=== PATIENT | female | born 1950 | race Caucasian/White ===

== ENCOUNTER 2019-07-23 14:33 | Outpatient (CLI) | payer MEDICARE, BC, SELFPAY ==
--- NOTE | 2019-07-23 14:55 | ECHO_ITS ---
Patient Info Name: Gege Massey Age: 68 years : 1950 Gender: Female Ht: 68 in Wt: 170 lbs BSA: 1.94 m2 HR: 71 bpm BP: 157 / 83 mmHg Heart Rhythm: Sinus Rhythm Technical Quality: Good Exam Date: 07/23/2019 3:02 PM Exam Location: [facility] Patient Status: Outpatient Admit Date: 07/23/2019 Staff Ordering Physician: Palma De Leon MD Campus Safety Officer: Barbara Barragan RDCS Attending Provider: Palma De Leon MD Referring Physician: Haley REYNOSO; Exam Type: CA echo doppler color flow Study Info Indications - nonrheumatic aortic valve insufficiency Complete two-dimensional, color flow and Doppler transthoracic echocardiogram is performed. Summary 1. Left ventricular chamber dimension is normal. 2. Left ventricular systolic function is normal, estimated at 55-60%. 3. There is mildly increased left ventricular wall thickness. 4. The left ventricular diastolic function is grade I diastolic dysfunction. 5. Left atrial chamber dimension is mildly enlarged. 6. Right atrial chamber dimension is mildly enlarged. 7. There is moderate aortic valve regurgitation. 8. There is mild mitral valve regurgitation. 9. There is mild tricuspid valve regurgitation. 10. There is mild pulmonic regurgitation. Left Ventricle Left ventricular chamber dimension is normal. Left ventricular systolic function is normal, estimated at 55-60%. There is mildly increased left ventricular wall thickness. The left ventricular diastolic function is grade I diastolic dysfunction. Right Ventricle Right ventricular chamber dimension is normal. Right ventricular systolic function is normal. Left Atria Left atrial chamber dimension is mildly enlarged. Right Atria Right atrial chamber dimension is mildly enlarged. Atrial Septum Intact interatrial septum visualized by color flow imaging. Aortic Valve The aortic valve is trileaflet. There is mild aortic valve sclerosis. There is no aortic valve stenosis. There is moderate aortic valve regurgitation. Pulmonic Valve The pulmonic valve is normal. There is no pulmonic valve stenosis. There is mild pulmonic regurgitation. Mitral Valve The mitral valve has thickened leaflets. There is no mitral valve stenosis. There is mild mitral valve regurgitation. Tricuspid Valve The tricuspid valve leaflets are normal. There is no significant tricuspid valve stenosis. There is mild tricuspid valve regurgitation. No pulmonary hypertension, estimated pulmonary arterial systolic pressure is 25 mmHg. Pericardium/Pleural The pericardium appears normal. There is no pericardial effusion. Inferior Vena Cava Normal inferior vena cava with >50% collapse upon inspiration consistent with normal right atrial pressure, 10 mmHg. Aorta The aortic root size at the sinus of Valsalva is normal. Left Ventricular Outflow Tract Name Value Normal LVOT 2D LVOT Diameter 2.0 cm LVOT Doppler LVOT Peak Gradient 5 mmHg LVOT Mean Gradient 3 mmHg LVOT VTI 27 cm
== END 2019-07-23 14:34 | disposition home or self-care (01) ==
PROVIDERS: PCP Family Medicine; Visit Provider Family Medicine
DX: I08.3 Combined rheumatic disorders of mitral, aortic and tricuspid valves (principal); I51.7 Cardiomegaly
CPT/HCPCS: 93306

== ENCOUNTER → 2019-07-25 09:16 | Outpatient (CLI) | payer MEDICARE, BC, SELFPAY ==
--- NOTE | ~2019-07-25 | MMUS_ITS ---
EXAMINATION: MM diagnostic aleksandra LT w zena, US breast LT limited HISTORY: Follow-up left breast masses TECHNIQUE: Additional 3-D tomosynthesis images of the left breast were performed and synthetic 2-D im ages were generated. CAD analysis was submitted and interpreted. High resolution left breast ultrasou nd was performed. COMPARISON: Comparison to multiple prior studies sequentially, with oldest reviewed study dated 10/2017. FINDINGS: MAMMOGRAPHIC FINDINGS: Breast composed of scattered areas of fibroglandular density. There are 2 small circumscribed radiolu cent nodules in the lower inner quadrant of the left breast, middle third, largest measuring 5 mm. No suspicious calcifications or architectural distortion. ULTRASOUND: Left breast ultrasound: At 7:00, 5 cm from the nipple there are 2 adjacent cysts, largest measuring 4 mm corresponding to the mammographic findings. At 7:00, 1 cm from the nipple there is a 3 mm cyst. No sonographic evidence f or malignancy. IMPRESSION: 1. No evidence for malignancy in the left breast. Benign cysts are identified by ultrasound correspon ding to the mammographic findings. 2. Routine yearly screening mammogram and regular clinical breast examination are recommended. BI-RADS Category 2: Benign finding(s). Reviewed, dictated and finalized at location A. 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 No evidence for malignancy in the left breast. Benign cysts are identified b y ultrasound corresponding to the mammographic findings. 2. Routine yearly screening mammogram and regular clinical breast examination a re recommended. BI-RADS Category 2: Benign finding(s).
== END ==
PROVIDERS: PCP Family Medicine; Visit Provider Physician Assistant Medical
DX: R92.8 Other abnormal and inconclusive findings on diagnostic imaging of breast (principal)
CPT/HCPCS: 76642; 77061; 77065; G0279

== ENCOUNTER → 2020-12-28 09:17 | Outpatient (CLI) | payer MEDICARE, BC, SELFPAY ==
[2020-12-28 18:17] LABS: SARS-CoV-2 RNA PCR Negative
== END ==
PROVIDERS: PCP Family Medicine; Visit Provider Family Medicine
DX: R05 Cough (principal); J02.9 Acute pharyngitis, unspecified; Z20.822 Contact with and (suspected) exposure to COVID-19
CPT/HCPCS: C9803; U0003; U0005

== ENCOUNTER 2021-01-28 12:34 | Outpatient (CLI) | payer MEDICARE, BC, SELFPAY ==
--- NOTE | 2021-01-28 | ECHO_ITS ---
Patient Info Name: Gege Massey Age: 70 years : 1950 Gender: Female Ht: 68 in Wt: 165 lbs BSA: 1.90 m2 HR: 71 bpm BP: 130 / 72 mmHg Technical Quality: Fair Exam Date: 01/28/2021 1:04 PM Exam Location: [facility] Patient Status: Outpatient Admit Date: 01/28/2021 Staff Ordering Physician: Palma De Leon MD Harness Racing Handicapper: Denise Ugarte RDCS Attending Provider: Palma De Leon MD Referring Physician: Haley REYNOSO; Exam Type: CA echo doppler color flow Study Info Indications I35.1 - Nonrheumatic aortic (valve) insufficiency Complete two-dimensional, color flow and Doppler transthoracic echocardiogram is performed. Summary 1. Complete two-dimensional, color flow and Doppler transthoracic echocardiogram is performed. 2. Left ventricular chamber dimension is normal. 3. Left ventricular systolic function is normal, estimated at 65-70%. 4. The left ventricular diastolic function is grade I diastolic dysfunction. 5. E/e' 12 is mildly elevated. 6. Global longitudinal strain is normal at -17.0%. 7. Left atrial chamber dimension is mildly enlarged. 8. There is mild aortic valve sclerosis. 9. There is mild aortic valve regurgitation. 10. No pulmonary hypertension, estimated pulmonary arterial systolic pressure is 26 mmHg. Left Ventricle E/e' 12 is mildly elevated. Global longitudinal strain is normal at -17.0%. Left ventricular chamber dimension is normal. Left ventricular systolic function is normal, estimated at 65-70%. The left ventricular diastolic function is grade I diastolic dysfunction. Right Ventricle Right ventricular chamber dimension is normal. Right ventricular systolic function is normal. Left Atria Left atrial chamber dimension is mildly enlarged. Right Atria Right atrial chamber dimension is normal. Aortic Valve The aortic valve is trileaflet. There is mild aortic valve sclerosis. There is no aortic valve stenosis. There is mild aortic valve regurgitation. Pulmonic Valve There is no pulmonic regurgitation. Mitral Valve There is no mitral valve stenosis. There is no mitral valve regurgitation. Tricuspid Valve There is no tricuspid valve regurgitation. No pulmonary hypertension, estimated pulmonary arterial systolic pressure is 26 mmHg. Pericardium/Pleural There is no pericardial effusion. Inferior Vena Cava Normal inferior vena cava with >50% collapse upon inspiration consistent with normal right atrial pressure, 5 mmHg. Aorta The aortic root size at the sinus of Valsalva is normal. Left Ventricular Outflow Tract Name Value Normal LVOT 2D LVOT Diameter 2.0 cm LVOT Doppler LVOT Peak Gradient 6 mmHg LVOT Mean Gradient 3 mmHg LVOT VTI 29 cm LVOT VTI/AV VTI Ratio 0.9 LVOT Stroke Volume 88 ml LVOT CO 5.8 l/min LVOT CI 3.1 l/min/m2 Pulmonic Valve
--- NOTE | 2021-01-28 12:50 | ECHO_ITS ---
Patient Info Name: Gege Massey Age: 70 years : 1950 Gender: Female Ht: 68 in Wt: 165 lbs BSA: 1.90 m2 HR: 71 bpm BP: 130 / 72 mmHg Technical Quality: Fair Exam Date: 01/28/2021 1:04 PM Exam Location: [facility] Patient Status: Outpatient Admit Date: 07/23/2019 Staff Ordering Physician: Palma De Leon MD Rag Collector: Denise Ugarte RDCS Attending Provider: Palma De Leon MD Referring Physician: Haley REYNOSO; Exam Type: CA echo doppler color flow Study Info Indications I35.1 - Nonrheumatic aortic (valve) insufficiency Complete two-dimensional, color flow and Doppler transthoracic echocardiogram is performed. Summary 1. Complete two-dimensional, color flow and Doppler transthoracic echocardiogram is performed. 2. Left ventricular chamber dimension is normal. 3. Left ventricular systolic function is normal, estimated at 65-70%. 4. The left ventricular diastolic function is grade I diastolic dysfunction. 5. E/e' 12 is mildly elevated. 6. Global longitudinal strain is normal at -17.0%. 7. Left atrial chamber dimension is mildly enlarged. 8. There is mild aortic valve sclerosis. 9. There is mild aortic valve regurgitation. 10. No pulmonary hypertension, estimated pulmonary arterial systolic pressure is 26 mmHg. Left Ventricle E/e' 12 is mildly elevated. Global longitudinal strain is normal at -17.0%. Left ventricular chamber dimension is normal. Left ventricular systolic function is normal, estimated at 65-70%. The left ventricular diastolic function is grade I diastolic dysfunction. Right Ventricle Right ventricular chamber dimension is normal. Right ventricular systolic function is normal. Left Atria Left atrial chamber dimension is mildly enlarged. Right Atria Right atrial chamber dimension is normal. Aortic Valve The aortic valve is trileaflet. There is mild aortic valve sclerosis. There is no aortic valve stenosis. There is mild aortic valve regurgitation. Pulmonic Valve There is no pulmonic regurgitation. Mitral Valve There is no mitral valve stenosis. There is no mitral valve regurgitation. Tricuspid Valve There is no tricuspid valve regurgitation. No pulmonary hypertension, estimated pulmonary arterial systolic pressure is 26 mmHg. Pericardium/Pleural There is no pericardial effusion. Inferior Vena Cava Normal inferior vena cava with >50% collapse upon inspiration consistent with normal right atrial pressure, 5 mmHg. Aorta The aortic root size at the sinus of Valsalva is normal. Left Ventricular Outflow Tract Name Value Normal LVOT 2D LVOT Diameter 2.0 cm LVOT Doppler LVOT Peak Gradient 6 mmHg LVOT Mean Gradient 3 mmHg LVOT VTI 29 cm LVOT VTI/AV VTI Ratio 0.9 LVOT Stroke Volume 88 ml LVOT CO 5.8 l/min LVOT CI 3.1 l/min/m2 Pulmonic Valve
== END 2021-01-28 12:35 | disposition home or self-care (01) ==
LOC: ANHCARD 12:34
PROVIDERS: PCP Family Medicine; Visit Provider Family Medicine
DX: I35.1 Nonrheumatic aortic (valve) insufficiency (principal); I34.0 Nonrheumatic mitral (valve) insufficiency
CPT/HCPCS: 93306

== ENCOUNTER → 2021-09-29 12:33 | Outpatient (CLI) | payer MEDICARE, BC, SELFPAY ==
--- NOTE | ~2021-09-29 | MM_ITS ---
EXAMINATION: MM screening aleksandra BI w zena HISTORY: Screening mammogram TECHNIQUE: Craniocaudal and mediolateral oblique 3-D tomosynthesis images were obtained and synthetic 2-D images were generated. CAD analysis was submitted and interpreted. COMPARISON: No prior mammogram is available for comparison at this institution. BREAST PARENCHYMAL COMPOSITION: FINDINGS: There is interval diminished size of a circumscribed nodular opacity in the lower inner lef t breast and resolution of the other adjacent opacity since July 25, 2019, consistent with benign process, likely cysts. No suspicious mass , calcification, or architectural distortion to suggest malignancy in either breas t. There has been no suspicious interval change. IMPRESSION: 1. No mammographic evidence of malignancy. 2. Recommend routine screening mammography in one year. BI-RADS Category 2: Benign finding(s). Reviewed, dictated and finalized at location A.
== END ==
PROVIDERS: PCP Family Medicine; Visit Provider Family Medicine
DX: Z12.31 Encounter for screening mammogram for malignant neoplasm of breast (principal)
CPT/HCPCS: 77063; 77067

== ENCOUNTER → 2022-03-04 10:00 | Outpatient (CLI) | payer MEDICARE, BC, SELFPAY ==
--- NOTE | ~2022-03-04 | MR_ITS ---
EXAMINATION: MR ankle LT wo con, MR foot LT wo con DATE: 03/04/2022 11:25 INDICATION: Left foot and ankle pain TECHNIQUE: 1. Magnetic resonance imaging (MRI) of the left ankle was performed without intravenous contrast. Seq uences included sagittal, coronal, and axial proton-density weighted fast spin echo without and with fat saturation. 2. MRI of the left fore/mid foot was performed without intravenous contrast. Sequences included sagi ttal T1-weighted FSE, sagittal fluid sensitive FSE STIR, coronal PD-weighted FS FSE, coronal T1-weigh enriqueta FSE, axial PD-weighted FS FSE, and axial PD-weighted FSE. COMPARISON: None. FINDINGS: Medial ankle ligaments: Deep and superficial deltoid ligaments as well as the spring ligament are normal. Lateral ankle ligaments: The anterior and posterior inferior tibiofibular ligaments are normal. The anterior talofibular, calc aneofibular and posterior talofibular ligaments are normal. Mid/forefoot ligaments: The Lis Franc ligament complex is normal. The collateral ligament complexes at the metatarsophalangea l and interphalangeal joints are normal. Tendons: Achilles tendon is normal. The peroneus longus and brevis tendons are normal. The tibialis anterior a nd extensor hallucis longus and extensor digitorum longus tendons are normal. The tibialis posterior, flexor digitorum longus and flexor hallucis longus tendons are normal. Plantar fascia: Near complete tear of the central component of the plantar aponeurosis with up to 1 cm distal retract ion of the torn portion of the tendon with small fluid collection at the tear defect.. Tendinopathy a nd partial-thickness tear involving approximately one half of the cross-sectional area of the lateral component of the plantar aponeurosis. Tendinopathy without discrete tear of the medial component. Mi ld cystic change at the calcaneal origin of the aponeurosis where there is also a small plantar calca jose luis spur. Bones/other: Bone alignment is normal. Normal bone marrow signal throughout. No fracture or pathologic marrow repl acing process. Typical distribution of minimal to mild polyarticular osteoarthritis in the left foot primarily at the second-fourth tarsal metatarsal, first metatarsophalangeal and a few of the interpha langeal joints. No erosions or pathologic marrow replacing process. Fluid: Physiologic amount fluid in the joint spaces. Small fluid collection is noted at the tear defect of t he plantar aponeurosis. No bursitis, tenosynovitis or other abnormal fluid collections. IMPRESSION: 1. Partial tear at the calcaneal origin of the plantar aponeurosis which is near complete at the cent ral component where there is up to 1 cm distal retraction of the torn portion of the aponeurosis. Reviewed, dictated and finalized at location B. IMPRESSION: 1. Partial tear at the calcaneal origin of the plantar aponeurosis which is scott r complete at the central component where there is up to 1 cm distal retraction of the torn portion of the aponeurosis.
== END ==
PROVIDERS: PCP Family Medicine; Visit Provider Orthopaedic Surgery
DX: M25.572 Pain in left ankle and joints of left foot (principal)
CPT/HCPCS: 73718; 73721

== ENCOUNTER → 2022-10-17 15:36 | Outpatient (CLI) | payer MEDICARE, BC, SELFPAY ==
--- NOTE | ~2022-10-17 | XR_ITS ---
[XR ribs LT 2V w CXR 2V ] INDICATION: Left rib pain TECHNIQUE: Frontal projection of the upper left ribs, frontal projection of the lower left ribs, obli que projection of all the left ribs, frontal inspiratory chest x-ray for interpretation. FINDINGS: There are no displaced rib fractures identified. There are no soft tissue abnormality see n. The lungs are clear. IMPRESSION: 1:No acute displaced rib fractures. Reviewed, dictated and finalized at location B.
== END ==
PROVIDERS: PCP Family Medicine; Visit Provider Family Medicine
DX: R07.89 Other chest pain (principal)
CPT/HCPCS: 71046; 71100

== ENCOUNTER → 2022-11-30 14:46 | Outpatient (CLI) | payer MEDICARE, BC, SELFPAY ==
--- NOTE | ~2022-11-30 | MM_ITS ---
EXAMINATION: MM screening [facility] BI w zena HISTORY: Screening mammogram TECHNIQUE: Craniocaudal and mediolateral oblique 3-D tomosynthesis images were obtained and synthetic 2-D images were generated. CAD analysis was submitted and interpreted. COMPARISON: 09/29/2021, 07/25/2019, 01/07/2019, 12/30/2018 BREAST PARENCHYMAL COMPOSITION: There are scattered areas of fibroglandular density. FINDINGS: RIGHT BREAST: An asymmetry is present in the subareolar aspect of the breast on the mediolateral obli que view. LEFT BREAST: No suspicious mass, calcification, or architectural distortion are identified to suggest malignancy. There has been no suspicious interval change. IMPRESSION: 1. Right breast asymmetry. 2. Additional mammographic views and possible breast ultrasound are recommended. BI-RADS Category 0: Incomplete: Needs additional imaging evaluation. Reviewed, dictated and finalized at location A. IMPRESSION: 1. Right breast asymmetry. 2. Additional mammographic views and possible breast ultrasound are recommended . BI-RADS Category 0: Incomplete: Needs additional imaging evaluation.
== END ==
PROVIDERS: PCP Family Medicine; Visit Provider Family Medicine
DX: Z12.31 Encounter for screening mammogram for malignant neoplasm of breast (principal); R92.8 Other abnormal and inconclusive findings on diagnostic imaging of breast
CPT/HCPCS: 77063; 77067

== ENCOUNTER → 2023-01-02 08:46 | Outpatient (CLI) | payer MEDICARE, BC, SELFPAY ==
--- NOTE | ~2023-01-02 | MMUS_ITS ---
EXAMINATION: MM diagnostic aleksandra RT w zena, US breast RT limited HISTORY: Right breast asymmetry on screening mammogram TECHNIQUE: Additional 3-D tomosynthesis images of the right breast were performed and synthetic 2-D i mages were generated. CAD analysis was submitted and interpreted. High resolution limited right breas t ultrasound was performed. COMPARISON: 11/30/2022, 09/29/2021, 12/30/2018 BREAST PARENCHYMAL COMPOSITION: There are scattered areas of fibroglandular density. FINDINGS: MAMMOGRAPHIC FINDINGS: There is a return to baseline fibroglandular appearance with spot compression of the right breast in the area questioned on screening mammogram. ULTRASOUND: No suspicious cystic or solid mass is identified with targeted ultrasound of the subareolar right qamar ast. There is mild duct ectasia. IMPRESSION: 1. No mammographic or sonographic evidence of malignancy. 2. Recommend routine screening mammography in one year. BI-RADS Category 2: Benign finding(s). Reviewed, dictated and finalized at location A. IMPRESSION: 1. No mammographic or sonographic evidence of malignancy. 2. Recommend routine screening mammography in one year. BI-RADS Category 2: Benign finding(s).
== END ==
PROVIDERS: PCP Family Medicine; Visit Provider Family Medicine
DX: R92.8 Other abnormal and inconclusive findings on diagnostic imaging of breast (principal)
CPT/HCPCS: 76642; 77061; 77065; G0279

== ENCOUNTER → 2023-07-11 15:07 | Outpatient (REF) | payer MEDICARE, BC, SELFPAY | LOC: ANHLAB 15:07 | PROVIDERS: PCP Family Medicine; Visit Provider Plastic Surgery | DX: C44.519 Basal cell carcinoma of skin of other part of trunk (principal) | CPT/HCPCS: 88305 ==

== ENCOUNTER 2024-01-21 15:20 | Outpatient (CLI) | payer MEDICARE, BC, SELFPAY ==
--- NOTE | ~2024-01-21 | XR_ITS ---
EXAMINATION: XR hip RT 2V w AP pelvis DATE: 01/21/2024 15:34 INDICATION: Right hip pain. TECHNIQUE: An anteroposterior view of the pelvis and 2 views of right hip were obtained. COMPARISON: Pelvis radiograph 01/16/2013 FINDINGS: There is lumbar dextroscoliosis and severe spondylosis. No fracture. There is mild osteoart hrosis of the hips. Osteitis pubis is noted. IMPRESSION: 1. Mild osteoarthritis of the hips. Reviewed, dictated and finalized at location A.
== END 2024-01-21 15:21 ==
LOC: GOSHIMG 15:21
PROVIDERS: PCP Family Medicine; Visit Provider Student in an Organized Health Care Education/Training Program
DX: M16.0 Bilateral primary osteoarthritis of hip (principal)
CPT/HCPCS: 73502

== ENCOUNTER 2024-02-14 13:22 | Outpatient (CLI) | payer MEDICARE, BC, SELFPAY ==
--- NOTE | ~2024-02-14 | MM_ITS ---
EXAMINATION: MM screening [facility] BI w zena HISTORY: Screening mammogram TECHNIQUE: Craniocaudal and mediolateral oblique 3-D tomosynthesis images were obtained and synthetic 2-D images were generated. CAD analysis was submitted and interpreted. COMPARISON: 11/30/2022, 09/29/2021, 07/25/2019 BREAST PARENCHYMAL COMPOSITION:Not Dense. There are scattered areas of fibroglandular density. FINDINGS: No suspicious mass, calcification, or architectural distortion are identified in either qamar ast to suggest malignancy. There has been no suspicious interval change. IMPRESSION: No mammographic evidence of malignancy. Recommend routine screening mammography in one year. BI-RADS Category 1: Negative Reviewed, dictated and finalized at location .
== END 2024-02-14 13:23 | disposition home or self-care (01) ==
PROVIDERS: PCP Family Medicine; Visit Provider Family Medicine
DX: Z12.31 Encounter for screening mammogram for malignant neoplasm of breast (principal)
CPT/HCPCS: 77063; 77067

== ENCOUNTER 2024-10-17 08:17 | Outpatient (CLI) | payer MEDICARE, BC, SELFPAY ==
--- NOTE | ~2024-10-17 | DEXA_ITS ---
Bone Density Report Name: PO JOHNSTON Age: 73 Sex: Female Ethnicity: White Date of : 1950 Indication: postmenopausal; screening for osteoporosis; hysterectomy; Referring Provider: SUE MOSLEY Study: Bone densitometry was performed. Exam Date: October 17, 2024 Accession number: [id number] Bone Density: Region BMD T-score Z-score Classification AP Spine(L1-L4) 0.944 -0.9 1.5 Normal Femoral Neck (Left) 0.664 -1.7 0.5 Osteopenia Total Hip (Left) 0.772 -1.4 0.4 Osteopenia Femoral Neck (Right) 0.646 -1.8 0.3 Osteopenia Total Hip (Right) 0.761 -1.5 0.3 Osteopenia Total Hip Mean 0.766 -1.5 0.4 Osteopenia World Health Organization criteria for BMD impression classify patients as: Normal (T-score at or above -1.0), Osteopenia (T-score between -1.0 and -2.5), or Osteoporosis (T-score at or below -2.5). 10-year Fracture Risk(1): Major Osteoporotic Fracture 13% Hip Fracture 3.1% Reported Risk Factors: [place] (), Neck BMD=0.646, BMI=26.8 (1) FRAX(R) Version 3.08. Fracture probability calculated for an untreated patient. Fracture probability may be lower if the patient has received treatment. Clinical Information Provided by Patient: Has used the following medications: HRT (i.e. estrogen/hormone therapy), Vitamin D Has the following medical conditions: Hysterectomy Patient maximum height was 67 Menopause Age: 25 No regular weight bearing exercise Drinks caffeinated beverages Onset of menses at age 11 Number of children 2 Impression: The patient has low bone mass, based on the Right Femoral Neck T-score. The patient has an estimated ten-year risk of hip fracture of 3.1% and an estimated ten-year risk of major fracture of 13%, based on the WHO FRAX algorithm. Discussion: BONE DENSITY IS LOW AT ONE OR MORE SKELETAL SITES. THE PATIENT'S BMD AND CLINICAL RISK FACTORS CONTRIBUTE TO THIS PATIENT'S INCREASED RISK OF FRACTURE. This patient's lowest T-score is low at one or more skeletal sites. It meets the World Health Organization's (WHO) criteria for ?low bone mass? (T-score between -1.0 and -2.5). The patient's 10-year risk of hip fracture as calculated by FRAX exceeds the threshold where pharmacological therapy is recommended by the National Osteoporosis Foundation (NOF). However, all treatment decisions require clinical judgment and consideration of individual patient factors, including patient preferences, comorbidities, previous drug use, risk factors not captured in the FRAX model (e.g., frailty, falls, vitamin D deficiency, increased bone turnover, interval significant decline in bone density) and possible under or overestimation of fracture risk by FRAX. The patient should follow a healthful lifestyle (good nutrition with adequate calcium and vitamin D, and appropriate weight-bearing exercise). Follow-Up: Consider a repeat BMD and Vertebral Fracture Assessment (VFA) exam in 2 years or sooner if medically necessary, to reassess this patient's status. Reported by: MARIANNE on 10/17/2024 8:56:00 AM. Reviewed, dictated and finalized at location A.
--- OUTSIDE RECORDS SUMMARY | 2024-10-17 08:20 | XMS_ITS | Clinical Summary ---
Author Organization [facility] Address [address] [place] [address] Phone Care Team Providers Care Psychiatrist Name Role Phone Aditi Butt MD Primary Care Provider Allergies Active Allergy Reactions Criticality Noted Date Comments Codeine Nausea and Vomiting Low 02/25/2021 Penicillins Hives High 02/25/2021 Shellfish Containing Products Hives High 02/25/2021 Sulfa (Sulfonamide Antibiotics) Shortness of Breath/Wheezing High 02/25/2021 Medications atorvastatin (LIPITOR) 10 mg tablet Take 10 mg by mouth daily at bedtime. Active telmisartan (MICARDIS) 40 mg Tablet Take 40 mg by mouth daily at bedtime. Active Multivitamins with Fluoride (MULTI-VITAMIN ORAL) Take 1 Tablet by mouth daily. Active sertraline (ZOLOFT) 50 mg tablet Take 50 mg by mouth daily. 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 Gender Identity Not on file Sexual Orientation Not on file Last Filed Vital Signs Vital Sign Reading Time Taken Comments Blood Pressure 140/56 02/25/2021 4:24 PM CDT Pulse 68 02/25/2021 4:24 PM CDT Temperature 36.9 C (98.4 F) 02/25/2021 4:24 PM CDT Respiratory Rate 16 02/25/2021 4:24 PM CDT Oxygen Saturation 97% 02/25/2021 4:24 PM CDT Inhaled Oxygen Concentration - - Weight - - Height - - Body Mass Index - - Plan of Treatment Health Maintenance Due Date Last Done Comments DTAP/TDAP/TD VACCINES (1 - Tdap) 12/07/1967 COLORECTAL SCREENING 1993 Colorectal Cancer Screening 1993 FIT-DNA Q 3 years 1993 FIT/FOBT Q 1 year 1993 Flex Sig/CT Colonography Q 5 years 1993 PNEUMOCOCCAL VACCINE 50+ YEARS (1 of 1 - PCV) 12/06/18 99 ZOSTER VACCINE (1 of 2) 1998 OSTEOPOROSIS SCREENING 2013 RSV VACCINE (60+ or ) (1 - 1-dose 75+ series) 12/07/2023 INFLUENZA VACCINE (#1) 2023 Insurance * Guarantor: Gege Massey Account Type Relation to Patient Date of Phone Billing Address Personal/Family Self 1950 [phone] (Work) [address] [place] [address] MEDICARE PART A AND B [facility] * Guarantor: Gege Massey Account Type Relation to Patient Date of Phone Billing Address Personal/Family Self 1950 [phone] (Work) [address] [place] [address] Care Teams Psychiatrist Relationship Specialty Start Date End Date Aditi Butt MD [address] [facility] [address] [place] [address] PCP - General 07/28/08
--- OUTSIDE RECORDS SUMMARY | 2024-10-17 08:20 | XMS_ITS | Patient Health Record ---
Author Organization [facility] [place] Address [address] [place] [address] Care Team Providers Care Ict Educator Name Role Phone Gary Salazar Unavailable [phone] ALLERGIES Allergen (clinical drug ingredient) Drug/Non Drug Allergy documented on EMR Reaction Allergy Type Onset Date Status IV contrast (uncoded) Unknown Allergy Active codeine Codeine Sulfate Unknown Drug Allergy A ctive penicillamine Penicillamine Unknown Drug Allergy Active Sulfacet-R Unknown Drug Allergy Active REASON FOR REFERRAL No Information MEDICATIONS Medication SIG (Take, Route, Frequency, Duration) Notes Start Date End Date Status predniSONE 10 MG Oral for 12 A ctive Atorvastatin Calcium 10 MG Oral for 30 Active Azithromycin 250 MG Oral for 5 Active Lipitor 10 MG 1 tablet Orally Once a day for 30 day(s) Active Benzonatate 200 MG Oral for 10 Active Telmisartan 40 MG Oral for 30 Active Sertraline HCl 50 MG Oral for 30 Active SOCIAL HISTORY Tobacco Use: Social History Observation Description Date Details (start date - stop date) Never Smoker NA - NA Sex Assigned At : Social History Observation Description Sex Assigned At Unknown Tobacco Use/Smoking Question Answer Notes Are you a nonsmoker PROBLEMS Problem Type ICD Code Onset Dates Problem Status W/U Status Risk SNOMED Code Notes Problem Other chronic pain (G89.29) Active confirmed 13253336 Problem Sacroiliitis, not elsewhere classified (M46.1) Active confirmed 81300325 Problem Spondylosis without myelopathy or radiculopathy, lumbosacral region (M47.817) Active confirmed 87646629 Problem Radiculopathy, lumbosacral region (M54.17) Active confirmed 2290416 Problem Lumbago with sciatica, left side (M54.42) Active confirmed 869478470 Problem Radiculopathy of lumbosacral region (M54.17) Active confirmed 9681973 Problem S/P lumbar laminectomy (Z98.890) Active confirmed [id number] Problem Left foot drop (M21.372) Active confirmed [id number] PLAN OF TREATMENT No Information MEDICATIONS ADMINISTERED Medication Instructions Date of Administration Dosage Notes LEFT L5 Selective Nerve Root Injection 12/30/2020 MEDICAL (GENERAL) HISTORY Medical History History ICD Code hypertension irritable bowel syndrome Surgical History Surgery Date(Month/Year) hysterectomy cholecystectomy back surgery
--- OUTSIDE RECORDS SUMMARY | 2024-10-17 08:20 | XMS_ITS | Patient Health Record ---
Author Organization [facility] [place] Address [address] [place], [place] [id number] Care Team Providers Care Alliance Consultant Name Role Phone DONTE PEARL Unavailable [phone] Reason For Referral No Information Immunizations Vaccine Route Administration Date Status Comme nts Pfizer 1st Dose IM Intramuscular 06/26/2020 Administered Pfizer 2nd Dose IM Intramuscular 07/17/2020 Administered Plan Of Treatment No Information Insurance Providers Payer Name Payer Address Payer Phone Subscriber Number Group Number Insured Name Patient Relationship to Insured Coverage Start Date Coverage End Date Medicare of [place] [address] [address] [place], [place] [id number] Gege Massey Self - patient is the insured
== END 2024-10-17 08:18 | disposition home or self-care (01) ==
LOC: ANHIMG 08:17
PROVIDERS: PCP Family Medicine; Visit Provider Family Medicine
DX: Z78.0 Asymptomatic menopausal state (principal); Z13.820 Encounter for screening for osteoporosis; M85.852 Other specified disorders of bone density and structure, left thigh; M85.851 Other specified disorders of bone density and structure, right thigh
CPT/HCPCS: 77080

== ENCOUNTER 2024-10-17 08:53 | Outpatient (CLI) | payer MEDICARE, BC, SELFPAY ==
--- NOTE | ~2024-10-17 | XR_ITS ---
[id number] 10/17/2024 09:11 INDICATION: Right knee pain PROCEDURE: 2 views right knee COMPARISON: No prior studies for comparison. FINDINGS: Fracture, dislocation or subluxation is not identified. The soft tissues appear within norm al limits. No foreign bodies are identified. IMPRESSION: 1: NO ACUTE BONE OR JOINT ABNORMALITY IDENTIFIED. Reviewed, dictated and finalized at location []
--- NOTE | ~2024-10-17 | XR_ITS ---
[id number] 10/17/2024 09:11 Indication: Left knee pain Procedure: 2 views left knee Comparison: No prior studies for comparison. Findings: There is anatomic alignment. There is mild patellofemoral compartment osteoarthritis. No elvis int effusion. No fracture or traumatic malalignment. Impression: 1: Mild patellofemoral compartment osteoarthritis. Reviewed, dictated and finalized at location [] Impression: 1: Mild patellofemoral compartment osteoarthritis.
== END 2024-10-17 08:54 | disposition home or self-care (01) ==
PROVIDERS: PCP Family Medicine; Visit Provider Student in an Organized Health Care Education/Training Program
DX: M25.561 Pain in right knee (principal); M22.2X2 Patellofemoral disorders, left knee
CPT/HCPCS: 73560

== ENCOUNTER 2025-04-14 16:02 | Outpatient (CLI) | payer MEDICARE, BC, SELFPAY ==
--- NOTE | ~2025-04-14 | MM_ITS ---
EXAMINATION: MM screening aleksandra BI w zena HISTORY: Screening TECHNIQUE: Craniocaudal and mediolateral oblique 3-D tomosynthesis images were obtained and synthetic 2-D images were generated. CAD analysis was submitted and interpreted. COMPARISON: Comparison to multiple prior studies sequentially, with oldest reviewed study dated 09/29/2021. BREAST PARENCHYMAL COMPOSITION: Not dense: There are scattered areas of fibroglandular density. FINDINGS: There are developing bilateral periareolar asymmetries. No discrete mass is identified. No suspicious calcifications. IMPRESSION: 1. Developing bilateral periareolar asymmetries. 2. Additional mammographic views and possible breast ultrasound are recommended. BI-RADS Category 0: Incomplete: Needs additional imaging evaluation. Reviewed, dictated and finalized at location O. CATION COORDINATOR IMPRESSION: 1. Developing bilateral periareolar asymmetries. 2. Additional mammographic views and possible breast ultrasound are recommended . BI-RADS Category 0: Incomplete: Needs additional imaging evaluation.
== END 2025-04-14 16:03 | disposition home or self-care (01) ==
LOC: MICIMG 16:03
PROVIDERS: PCP Family Medicine; Visit Provider Family Medicine
DX: Z12.31 Encounter for screening mammogram for malignant neoplasm of breast (principal); R92.8 Other abnormal and inconclusive findings on diagnostic imaging of breast
CPT/HCPCS: 77063; 77067

== ENCOUNTER 2025-04-27 15:00 | Outpatient (CLI) | payer MEDICARE, BC, SELFPAY ==
--- OUTSIDE RECORDS SUMMARY | 2025-04-27 15:45 | XMS_ITS | Clinical Summary ---
Author Organization [facility] Address [address] [place] [address] Care Team Providers Care Oracle Database Manager Name Role Phone Palma De Leon MD Primary Care Provider [phone] Allergies Active Allergy Reactions Criticality Noted Date Comments Codeine Vomiting 03/31/2019 Penicillins Hives 03/31/2019 Shellfish Protein-Containing Drug Products Hives 03/31/2019 Sulfa Antibiotics Shortness of Breath High 9 Medications sertraline 50 MG tablet Take 50 mg by mouth nightly at bedtime. Active atorvastatin 10 MG tablet Take 10 mg by mouth nightly at bedtime. Active telmisartan 40 MG tablet Take 40 mg by mouth nightly. Active Multiple Vitamins-Minera ls (CENTRUM ADULTS OR) Active Social History Tobacco Use Types Packs/Day Years Used Date Smoking Tobacco: Never Smokeless Tobacco: Never Alcohol Use Standard Drinks/Week Comments Yes 0 (1 standard drink = 0.6 oz pur e alcohol) Comments No Sex and Gender Information Value Date Recorded Sex Assigned at Not on file Legal Sex Female 9:57 AM CDT Gender Identity Not on file Sexual Orientation Not on file Last Filed Vital Signs Vital Sign Reading Time Taken Comments Blood Pressure 135/60 05/05/2019 11:11 AM MANAGER ENGLISH Pulse 67 05/05/2019 11:11 AM MANAGER ENGLISH Temperature 36.9 C (98.5 F) 05/05/2019 9:30 AM MANAGER ENGLISH Respiratory Rate 16 05/05/2019 11:11 AM MANAGER ENGLISH Oxygen Saturation 99% 05/05/2019 11:11 AM MANAGER ENGLISH Inhaled Oxygen Concentration - - Weight 72.6 kg (160 lb) 04/29/2019 12:54 PM MANAGER ENGLISH Height 172.7 cm (5' 8) 04/29/2019 12:54 PM MANAGER ENGLISH Body Mass Index 24.33 04/29/2019 12:54 PM MANAGER ENGLISH Plan of Treatment Health Maintenance Due Date Last Done Comments Hepatitis C 1966 DTaP, Tdap and Td Vaccines ( 1 - Tdap) 12/07/1967 Pneumococcal Vaccine: 50+ Ye ars (1 of 1 - PCV) 1998 Zoster Vaccines (1 of 2) 1998 Annual Medicare Wellness Visit 2013 Dexa Scan (General) 2013 RSV Immunization or 60+ Years (1 - 1-dose 75+ series) 12/07/2023 COVID-19 Vaccine (1 - 2024-2 6 season) 2025 Influenza Adult (#1) 2025 Hepatitis A Vaccines Aged Out No long er eligible based on patient's age to complete this topic Meningococcal B Vaccine Aged Out No l onger eligible based on patient's age to complete this topic Meningococcal Vaccine Aged Out No silvia markos eligible based on patient's age to complete this topic RSV Immunizations Under 20 Months Aged Out No longer eligible based on patient's age to complete this topic Medical Devices Implanted Type Area Prototype Fabricator Device Identifier Shelf Expiration Date Model / Serial / Lot Iol Toric Lens [id number] - [id number] Implanted:Qty: 1 on 04/07/2019 by Gary Bustillo MD at [facility] Lens [employer] 10/25/2021 [id number] / [id number] / Iol [place] [employer] Zcboo - [id number] Implanted:Qty: 1 on 05/05/2019 by Gary Bustillo MD at [facility] Lens [employer] 04/09/2022 [id number] / [id number] / Insurance MEDICARE [employer] Care Teams Oracle Database Manager Relationship Specialty Start Date End Date Palma De Leon MD PCP - General FAMILY PRACTICE 04/01/19
--- OUTSIDE RECORDS SUMMARY | 2025-04-27 15:45 | XMS_ITS | Encounter Summary ---
Author Organization [facility] Address [address] [place] [address] Phone Care Team Providers Care Culinary Director Name Role Phone Palma De Leon MD Primary Care Provider + Palma De Leon MD Primary Care Provider + Encounter Details Date Type Department Care Team (Late st Contact Info) Description 05/11/2016 Orders Only [facility] Scanning, Provider Social History Tobacco Use Types Packs/Day Years Used Date Smoking Tobacco: Never Assessed Alcohol Use Standard Drinks/Week Comments Yes 0 (1 standard drink = 0.6 oz pur e alcohol) Comments Unknown Sex and Gender Information Value Date Recorded Sex Assigned at Not on file Legal Sex Female 1:53 AM SUBSTATION MAINTENANCE TECHNICIAN Gender Identity Female 04/07/2020 2:35 PM SUBSTATION MAINTENANCE TECHNICIAN Sexual Orientation Straight 04/07/2020 2: 35 PM SUBSTATION MAINTENANCE TECHNICIAN documented as of this encounter Plan of Treatment Upcoming Encounters Date Type Department Care Team (Latest Contact Info) Description 07/02/2025 7:00 AM SUBSTATION MAINTENANCE TECHNICIAN Hospital Encounter [facility] Endoscopy [id number] [place] [address] Conrad Lauren MD [address] [place], [place] [id number] Pancreatic cyst; Family history of pancreatic cancer 07/02/2025 7:00 AM SUBSTATION MAINTENANCE TECHNICIAN - 07/02/2025 7:30 AM SUBSTATION MAINTENANCE TECHNICIAN Surgery [facility] Endoscopy [id number] [place] [address] Conrad Lauren MD [address] [place] [address] [place] Endoscopy Scheduled Procedures Name Priority Associated Diagnoses Date/Ti me ESOPHAGOGASTRODUODENOSCOPY Pancreatic cyst Family history of pancreatic cancer 07/02/2025 7:00 AM SUBSTATION MAINTENANCE TECHNICIAN documented as of this encounter Procedures Procedure Name Priority Date/Time Associated Diagnosis Comments SCAN - RADIOLOGY/IMAGING 05/11/2016 documented in this encounter Results * SCAN - RADIOLOGY/IMAGING (05/11/2016) Anatomical Region Laterality Modality Other us Provider Scanning Final Result documented in this encounter Visit Diagnoses Not on filedocumented in this encounter Care Teams Culinary Director Relationship Specialty Start Date End Date Palma De Leon MD PCP - General Family Medicine 01/21/18 01/23/18 Palma De Leon MD PCP - General Family Medicine 01/24/18 documented as of this encounter
--- OUTSIDE RECORDS SUMMARY | 2025-04-27 15:46 | XMS_ITS | Clinical Summary ---
Author Organization [facility] [address] Address [address] [place] [address] Care Team Providers Care Lead Warehouse Associate Name Role Phone Palma De Leon MD Primary Care Provider + Allergies Active Allergy Reactions Criticality Noted Date Comments Adhesive Blisters High 05/04/2021 telfa dressing Codeine Hives,Nausea & Vomiting Medium Iodinated Contrast Media Hives Medium Iodine Hives Medium Other Unknown 12/30/2020 Penicillamine Unknown 12/30/2020 Penicillins Anaphylaxis,Hives High Shellfish Containing Products Hives Medium 02/25/2021 Sulfa (Sulfonamide Antibiotics) Hives Medium Sulfanilamide Angioedema High Medications sertraline (ZOLOFT) 50 mg tablet 50 mg. 0 07/16/2012 Active cholecalciferol (VITAMIN D3) 1,000 unit capsule 0 07/16/2012 Active magnesium 100 mg capsule 100 mg. 0 07/16/2012 Active atorvastatin (LIPITOR) 10 mg tablet 10 mg. 0 07/16/2012 Active aspirin (ASPIR-81) 81 mg tablet 81 mg. 0 0 09/23/2013 Active omega 9-jok-okm-fish oil (FISH OIL) 100-160-1,000 mg capsule 0 0 09/23/2013 Active telmisartan (MICARDIS) 40 mg tablet Take 1 tablet (40 mg total) by mouth daily Active lidocaine (LIDODERM) 5 % PLACE 1 PATCH ON THE SKIN DAILY. REMOVE AND DISCARD WITHIN 12 HOURS OR DIRECTED BY 90 patch 03/08/2022 Active amitriptyline (ELAVIL) 10 mg tablet 06/19/2022 Active Active Problems Problem Noted Date Diagnosed Date IPMN (intraductal papillary mucinous neoplasm) 1 06/15/2020 Overview (04/15/2021): Added automatically from request for surgery [id number] Family history of pancreatic cancer 04/15/2021 Overview (04/15/2021): Added automatically from request for surgery [id number] Encounter for screening colonoscopy 03/11/2019 Overview (03/11/2019): Added automatically from request for surgery [id number] Pancreatic cyst 02/14/2018 Overview (02/14/2018): Added automatically from request for surgery [id number] Encounter for colorectal cancer screening 2017 Overview (02/14/2018): Added automatically from request for surgery [id number] Cyst of pancreas 11/12/2013 Hyperlipidemia 07/15/2012 Overview (08/30/2016): Hyperlipidemia Lumbago 04/26/2011 Encounters Date Type Department Care Team Description 04/17/2025 Telephone [facility] [address] [place] [address] Elizabeth Meeks, hot repairman scheduling from Last 3 Months Surgical History Surgery Date Site/Laterality Comments CHOLECYSTECTOMY 05/28/2011 - 05/27/2012 TOTAL ABDOMINAL HYSTERECTOMY W/ BILATERAL SALPINGOOPHORECTOMY age 25 COLONOSCOPY BACK SURGERY 05/28/2014 - 05/27/2015 UPPER GASTROINTESTINAL ENDOSCOPY CATARACT EXTRACTION EXTRACAP SULAR W/ INTRAOCULAR LENS IMPLANTATION 05/28/2018 - 05/27/2019 Bilateral Medical History Medical History Date Comments Irritable bowel syndrome Pancreatic cyst 2013 Multi-focal bran ch duct IPMN. Family hx pancreatic cancer Motion sickness Hypertension Chronic constipation Chronic diarrhea Cataract 2019 Family History Medical History Relation Name Comments Heart disease Father Cancer Mother Pancreatic cancer Mother Cancer, pa ncreas; Cause of : Cancer, pancreas Pancreatic cancer Mother's Sister 2 Cance r, pancreas; Cause of : Cancer, pancreas Other Other 1 No family histo ry of Cancer, colon; Other Other 2 No family histo ry of Celiac disease; Other Other 3 No family histo ry of Colon polyps; Other Other 4 No family histo ry of Crohn's disease; Other Other 5 No family histo ry of Ulcerative colitis; Relation Name Status Comments Father Mother Mother's Sister 1 Mother's Sister 2 Other 1 Other 2 Other 3 Other 4 Other 5 Social History Tobacco Use Types Packs/Day Years Used Date Smoking Tobacco: Never Smokeless Tobacco: Never Tobacco Cessation:Counseling Given: Not Answered Alcohol Use Standard Drinks/Week Comments Yes 0 (1 standard drink = 0.6 oz pur e alcohol) rarely AUDIT-C Answer Date Recorded Q1: How often do you have a drink containing alc ohol? Never 06/05/2024 Average Number of Drinks Not on file 025 Frequency of Binge Drinking Not on file 01/2025 Personal Safety Answer Date Recorded Have you ever been in or are you currently in a harmful physical or emotional relationship or is someone making you feel afraid or unsafe? Denies 06/27/2023 Comments No Sex and Gender Information Value Date Recorded Sex Assigned at Not on file Legal Sex Female 1:53 AM CINDER WORKER Gender Identity Female 04/07/2020 2:35 PM CINDER WORKER Sexual Orientation Straight 04/07/2020 2: 35 PM CINDER WORKER Last Filed Vital Signs Vital Sign Reading Time Taken Comments Blood Pressure 138/74 06/05/2024 8:57 AM CINDER WORKER Pulse 79 06/05/2024 8:57 AM CINDER WORKER Temperature 36.2 C (97.2 F) 06/27/2023 8:20 AM CINDER WORKER Respiratory Rate 29 06/27/2023 8:35 AM CINDER WORKER Oxygen Saturation 95% 06/27/2023 8:35 AM CINDER WORKER Inhaled Oxygen Concentration - - Weight 73.9 kg (163 lb) 12/25/2024 8:57 AM CDT Height 172.7 cm (5' 8) 12/25/2024 8:57 AM CDT Body Mass Index 24.78 12/25/2024 8:57 AM CDT Plan of Treatment Upcoming Encounters Date Type Department Care Team (Latest Contact Info) Description 07/02/2025 7:00 AM CINDER WORKER Hospital Encounter [facility] Endoscopy [address] [address] Conrad Lauren MD [address] [place] [address] Pancreatic cyst; Family history of pancreatic cancer 07/02/2025 7:00 AM CINDER WORKER - 07/02/2025 7:30 AM CINDER WORKER Surgery [facility] Endoscopy [address] [address] Conrad Lauren MD [address] [place] [address] [place] Endoscopy Scheduled Procedures Name Priority Associated Diagnoses Date/Ti me ESOPHAGOGASTRODUODENOSCOPY Pancreatic cyst Family history of pancreatic cancer 07/02/2025 7:00 AM CINDER WORKER Health Maintenance Due Date Last Done Comments Depression Screening 1950 Hepatitis C Screening 1950 Osteoporosis Screening-Bone Density Scan 1950 DTaP/Tdap/Td Vaccine (1 - Tdap) 12/07/1959 Hepatitis B Screening 1966 Pneumococcal vaccine 65+ (1 of 1 - PCV) 1998 Zoster Vaccine (1 of 2) 1998 Well Visit 65+ 2013 Fall Risk Assessment 06/27/2024 06/27/2023 Covid-19 Vaccine (3 - season) 2025, 06/26/2020 Influenza Vaccine (#1) 2025 03/06/2019, 2017 Colon Cancer Screening-CT Colonography Discontinued Colon Cancer Screening-Colonoscopy Discontinued 2018 Colon Cancer Screening-DNA Stool Discontinued 04/03/20 Colon Cancer Screening-FIT Discontinued 04/03/2019 Colon Cancer Screening-FOBT Discontinued 04/03/2019 Colon Cancer Screening-Sigmoidoscopy Discontinued 11/2018 Colorectal Cancer Screening Discontinued Procedures Procedure Name Priority Date/Time Associated Diagnosis Comments COLONOSCOPY 04/03/2019 12:18 PM CINDER WORKER from Last 3 Months or Most Recently Relevant to Health Maintenance Results * COLONOSCOPY (04/03/2019 12:18 PM CINDER WORKER) Anatomical Region Laterality Modality Other Narrative Procedure Note Conrad Lauren MD - 04/03/2019 12:18 PM CST ENDOSCOPY LAB Patient Name: Gege Massey Procedure Date: 04/03/2019 12:18 PM Date of : 1950 Admit Type: Outpatient Age: 68 Gender: Female Attending MD: Conrad Lauren M.D. Room: [facility] ENDOSCOPY ROOM 04 Note Status: Finalized Procedure: Colonoscopy Indications: Screening for colorectal malignant neoplasm (last colonoscopy was 10 years ago) Providers: Conrad Lauren M.D. Referring MD: Palma De Leon MD Medicines: Monitored Anesthesia Care Complications: No immediate complications. Estimated blood loss:None. Estimated Blood Loss: Estimated blood loss: none. Procedure: Pre-Anesthesia Assessment: - The risks and benefits of the procedure and thesedation options and risks were discussed with the patient. All questions were answered and informed consent wasobtained. - Immediately prior to administration of medications,the patient was re-assessed for adequacy to receivesedatives. - The anesthesia plan was to use monitored anesthesiacare (MAC). The benefits, risks and alternatives of the procedureand sedation were discussed and informed consent wasobtained. All questions were answered. Please refer to the signed informed consent document in the medical record. Thescope was passed under direct vision. The [id number] introduced through the anus and advanced to the cecum, identified by appendiceal orifice and ileocecal valve.The colonoscopy was performed without difficulty. Thepatient tolerated the procedure well. The quality of the bowel preparation was evaluated using the BBPS ([place] Bowel Preparation Scale) with scores of: Right Colon = 2(minor amount of residual staining, small fragments of stool and/or opaque liquid, but mucosa seen well), Transverse Colon = 3 (entire mucosa seen well with no residual staining, small fragments of stool or opaque liquid)and Left Colon = 2 (minor amount of residual staining,small fragments of stool and/or opaque liquid, but mucosaseen well). The total BBPS score equals 7. The quality ofthe bowel preparation was good. Bowel prep was administered using a split dose. Findings: The perianal and digital rectal examinations were normal. Multiple small and large-mouthed diverticula were found in thesigmoid colon. Internal hemorrhoids were found during retroflexion. The hemorrhoids were mild. Impression: - Diverticulosis in the sigmoid colon. - Internal hemorrhoids. - No specimens collected. Recommendation: - Observe patient's clinical course following today's Colonoscopy. - Repeat colonoscopy in 10 years. - Resume home medications and diet. - Return to primary care physician as previouslyscheduled. - In the unusual situation that you develop abdominal pain, bleeding or other significant problems in thedays following this procedure please call my office at [phone] to speak to my nurses. After hours and evenings please call [phone] and speak to theGI fellow civil division deputy sheriff. Please tell them that Dr. Lauren did your procedure and that your were instructed to have thefellow call me or the physician covering for me to discuss the management of your condition. If you have an urgent problem, please go to the nearest emergency room andhave the ER doctor call my office during the day or the GI Fellow after hours and weekends to arrange admission or transfer to our facility. Attending Participation: I personally performed the entire procedure. Electronically Signed By: Conrad Lauren M.D. Conrad Lauren M.D. 04/03/2019 12:55:01 PM Number of Addenda: 0 Note Initiated On: 04/03/2019 12:18 PM Conrad Lauren MD ENDOSCOPY PROCEDURES Final Result from Last 3 Months or Most Recently Relevant to Health Maintenance Insurance MEDICARE [facility] MEDICARE [facility] FEDERAL MEDICARE [facility] FEDERAL Advance Directives For more information, please contact: [phone] * Full Code (Latest Code Status on File) Date Activated Date Inactivated Comments 06/27/2023 7:11 AM 06/27/2023 1:01 PM * Full Code Date Activated Date Inactivated Comments 05/04/2021 8:50 AM 05/04/2021 3:01 PM * Full Code Date Activated Date Inactivated Comments 04/03/2019 9:50 AM 04/03/2019 5:55 PM Care Teams Lead Warehouse Associate Relationship Specialty Start Date End Date Palma De Leon MD PCP - General Family Medicine 01/24/18
--- OUTSIDE RECORDS SUMMARY | 2025-04-27 15:46 | XMS_ITS | Clinical Summary ---
Author Organization [facility] Address [address] [place] [address] Care Team Providers Care Feed Project Engineer Name Role Phone Unavailable Primary Care Provider Unavailabl e Source Comments [facility],non-owned Affiliates and Associated Physician Practices is amultiple site organization consisting of ambulatory clinics and hospital sitesin [place], [place], [place] and [place]. This disclosure is being madepursuant to the Care Everywhere program and may not contain all information available regarding this patient. 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 Gender Identity Not on file Sexual Orientation Not on file Plan of Treatment Health Maintenance Due Date Last Done Comments BONE DENSITY TESTING 1950 MEDICARE AWV 12 MONTHS 1950 HEPATITIS C SCREENING 12/02/1966 DTAP/TDAP/TD VACCINES (1 - Tdap) 12/07/1967 PNEUMOCOCCAL VACCINE 50+ (1 of 1 - PCV) 1998 ZOSTER VACCINE (1 of 2) 1998 Respiratory Syncytial Virus (RSV) Vaccine Pt: or over 60 yrs (1 - 1-dose 75+ series) 12/07/2023 DEPRESSION SCREENING 05/28/2024 COVID-19 VACCINE ( - 2024-2 6 season) 2025 INFLUENZA VACCINE (#1) 2025 HEPATITIS B VACCINE Aged Out No longe r eligible based on patient's age to complete this topic HIB VACCINE Aged Out No longer eligi ble based on patient's age to complete this topic HPV VACCINE Aged Out No longer eligi ble based on patient's age to complete this topic MENINGOCOCCAL (Group B) VACC INE SHARED DECISION-MAKING Aged Out No longer eligibl e based on patient's age to complete this topic MENINGOCOCCAL GROUPS A/C/Y/W VACCINE Aged Out No longer eligible b ased on patient's age to complete this topic Procedures Procedure Name Priority Date/Time Associated Diagnosis Comments DERMATOPATHOLOGY Routine 02/26/2025 6:45 AM CDT Melanocytic nevi of left lower limb, including hip from Last 3 Months Results * DERMATOPATHOLOGY (02/26/2025 6:45 AM CDT) Case Report Dermatopathology Report Case: [id number] Authorizing Provider: Milena Milner MD Collected: 02/26/2025 06:45 AM Ordering Location: [facility] - Received: 03/02/2025 06:12 AM DermPath Lab Pathologist: Wendy Salazar MD Specimen: Skin, left posterior leg 1:58 PM CDT DERMATOPATHOLOGY LABORATORY Final Diagnosis Specimen A. SKIN, left posterior leg: DERMAL SCAR RESIDUAL MELANOCYTIC NEVUS NOT IDENTIFIED (L90.5) 1:58 PM CDT DERMATOPATHOLOGY LABORATORY at 1358 CDT Clinical History Jeffery Nevus. Check Margins 1:58 PM CDT DERMATOPATHOLOGY LABORATORY Gross Description Specimen A: Received is one formalin filled container labeled with the patient's name and designated left posterior leg. The specimen consists of a non-oriented ellipse of skin measuring [id number] mm. The epidermal surface is unremarkable. The margin is inked green. The 12 o'clock and 6 o'clock tips are submitted in cassette 1. The remainder of the ellipse is serially sectioned and submitted in cassette 2-3. Jar 0. 1:58 PM CDT DERMATOPATHOLOGY LABORATORY Microscopic Description Specimen A. SKIN, left posterior leg: There are fibroblasts and collagen bundles oriented parallel to the skin surface. There are elongated blood vessels, some of which are oriented perpendicular to the skin surface. No residual melanocytic nevus is identified. 1:58 PM CDT DERMATOPATHOLOGY LABORATORY Disclaimer An external and internal positive and negative controls are appropriate for the histochemical, immunohistochemical and immunofluorescence stain(s) in this case (if any), except where stated explicitly. The performance characteristics of the stain(s) cited in this report were developed and its performance characteristic determined by the Dermatopathology Laboratory at [facility], directed by Dr. Jeri Chris. These tests need not be, and therefore are not, approved by the [place] Food and Drug Administration. The tests are used for clinical purposes. Billing Codes Specimen Charges Stain Charges 20388 1 1:58 PM CDT DERMATOPATHOLOGY LABORATORY Embedded Images 1:58 PM CDT DERMATOPATHOLOGY LABORATORY Pathology/Cytolo gy TISSUE SPECIMEN FROM SKIN / Unknown 02/26/2025 6:45 AM CDT 03/02/2025 6:12 AM CDT Milena Milner MD LAB - PATHOLOGY/CYTOLOGY ORDERAB LES Final Result DERMATOPATHOLOGY LABORATORY [facility] - Department of Dermatology [facility] [address] [place] [address], [address] [phone] from Last 3 Months Insurance [employer] Member Subscriber Plan / Payer (Ef fective 2013-Present) Name:Po Johnston Member ID:[id number] Relation to Subscriber:Self Name:Po Johnston Subscriber ID:[id number] Payer ID:Not on file Group ID:Not on file Type:Medicare Address: [address] MEDICARE * Guarantor: PO JOHNSTON Account Type Relation to Patient Date of Phone Billing Address Personal/Family Spouse
--- OUTSIDE RECORDS SUMMARY | 2025-04-27 15:46 | XMS_ITS | Encounter Summary ---
Author Organization [facility] Address [address] [place] [address] Phone Care Team Providers Care Money Room Teller Name Role Phone Palma De Leon MD Primary Care Provider + Palma De Leon MD Primary Care Provider + Encounter Details Date Type Department Care Team (Late st Contact Info) Description 10/04/2015 Orders Only [facility] Scanning, Provider Social History Tobacco Use Types Packs/Day Years Used Date Smoking Tobacco: Never Assessed Alcohol Use Standard Drinks/Week Comments Yes 0 (1 standard drink = 0.6 oz pur e alcohol) Comments Unknown Sex and Gender Information Value Date Recorded Sex Assigned at Not on file Legal Sex Female 1:53 AM SUPERVISOR CELL ROOM Gender Identity Female 04/07/2020 2:35 PM SUPERVISOR CELL ROOM Sexual Orientation Straight 04/07/2020 2: 35 PM SUPERVISOR CELL ROOM documented as of this encounter Plan of Treatment Upcoming Encounters Date Type Department Care Team (Latest Contact Info) Description 07/02/2025 7:00 AM SUPERVISOR CELL ROOM Hospital Encounter [facility] [address] [place] [address] Conrad Lauren MD [address] [place] [address] Pancreatic cyst; Family history of pancreatic cancer 07/02/2025 7:00 AM SUPERVISOR CELL ROOM - 07/02/2025 7:30 AM SUPERVISOR CELL ROOM Surgery [facility] Endoscopy [address] [place] [address] Conrad Lauren MD [address] [place] [address] [place] Endoscopy Scheduled Procedures Name Priority Associated Diagnoses Date/Ti me ESOPHAGOGASTRODUODENOSCOPY Pancreatic cyst Family history of pancreatic cancer 07/02/2025 7:00 AM SUPERVISOR CELL ROOM documented as of this encounter Procedures Procedure Name Priority Date/Time Associated Diagnosis Comments SCAN - RADIOLOGY/IMAGING 10/04/2015 documented in this encounter Results * SCAN - RADIOLOGY/IMAGING (10/04/2015) Anatomical Region Laterality Modality Other us Provider Scanning Final Result documented in this encounter Visit Diagnoses Not on filedocumented in this encounter Care Teams Money Room Teller Relationship Specialty Start Date End Date Palma De Leon MD PCP - General Family Medicine 01/21/18 01/23/18 Palma De Leon MD PCP - General Family Medicine 01/24/18 documented as of this encounter
--- OUTSIDE RECORDS SUMMARY | 2025-04-27 15:46 | XMS_ITS | Encounter Summary ---
Author Organization [facility] Address [address] [facility] [place] [address] Care Team Providers Care Motion Pictures Cartoonist Name Role Phone Unavailable Primary Care Provider Unavailabl e Encounter Details Date Type Department Care Team (Late st Contact Info) Description 02/26/2025 Lab Requisition [facility] - DermPath Lab [address] [place] [address] Milena Milner MD [address] [place] [address] [place] [address] Melanocytic nevi of left lower limb, including hip Social History Tobacco Use Types Packs/Day Years Used Date Smoking Tobacco: Never Assessed Comments Unknown Sex and Gender Information Value Date Recorded Sex Assigned at Not on file 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 - Received: 03/02/2025 06:12 AM DermPath Lab [...] of a non-oriented ellipse of skin measuring [id number] mm. The epidermal surface is unremarkable. The [...] characteristic determined by the Dermatopathology Laboratory at [facility], directed by Dr. Jeri Chris. These tests need not be, and therefore are not, approved by the [place] Food and Drug Administration. The tests are used for clinical purposes. Billing Codes Specimen Charges Stain Charges 38272 1 1:58 PM CDT DERMATOPATHOLOGY LABORATORY Embedded Images 1:58 PM CDT DERMATOPATHOLOGY LABORATORY Pathology/Cytolo gy TISSUE SPECIMEN FROM SKIN / Unknown 02/26/2025 6:45 AM CDT 03/02/2025 6:12 AM CDT us Milena Milner MD LAB - PATHOLOGY/CYTOLOGY ORDERAB LES Final Result DERMATOPATHOLOGY LABORATORY [facility] - Department of Dermatology [address], [address] [phone] documented in this encounter Visit Diagnoses Diagnosis Melanocytic nevi of left lower limb, including hip documented in this encounter
--- OUTSIDE RECORDS SUMMARY | 2025-04-27 15:46 | XMS_ITS | Clinical Summary ---
Author Organization [email or web address] [place] Address [address] [address] Phone Care Team Providers Care Oil Seal Assembler Name Role Phone Aditi Butt MD Primary [...] on file Legal Sex Female 5:42 AM MOLD FILLER P[employer]LLS Gender Identity Not on file Sexual Orientation [...] Comments DTAP/TDAP/TD VACCINES (1 - Tdap) 12/07/1967 PNEUMOCOCCAL VACCINE 50+ YEARS (1 of 1 - PCV) 12/06/18 99 ZOSTER VACCINE (1 of 2) 1998 OSTEOPOROSIS SCREENING 2013 RSV VACCINE (60+ or ) (1 - 1-dose 75+ series) 12/07/2023 INFLUENZA VACCINE (#1) 2024 Insurance * Guarantor: Gege Massey Account Type Relation to Patient Date of Phone Billing Address Personal/Family Self 1950 [phone] (Work) [address] [place] [address] MEDICARE PART A AND B [facility] [phone] (Work) [address] [place] [place] [id number] Care Teams Oil Seal Assembler Relationship Specialty Start Date End Date Aditi Butt MD [address] [facility] [address] [place] [address] PCP - General 07/28/08
[2025-04-27 19:40] LABS: Hematocrit 40.7 % (37.0-47.0); Hemoglobin 13.0 g/dL (12.0-15.0); Immature Granulocyte Percent A 0.1 % (0-0.5); Lymphocytes Absolute Auto 2.53 K/mm3 (0.9-3.2); Mean Corpuscular HGB Conc 31.9 g/dl (32-36); Mean Corpuscular Hemoglobin 28.1 pg (26-34); Mean Corpuscular Volume 87.9 fl (80-100); Nucleated Red Blood Cells Absolute Auto 0.000 K/mm3 (0.0-0.012); Nucleated Red Blood Cells Perc 0.0 % (0.0-0.2); Platelet Count Result 249 k/mm3 (150-375); Red Blood Count 4.63 M/mm3 (4.2-5.4); White Blood Count 7.0 K/mm3 (4.5-10.0)
[2025-04-27 19:46] LABS: Alanine Aminotransferase 23 U/L (6-35); Albumin Level 4.3 g/dL (3.5-5.1); Alkaline Phosphatase 66 U/L (38-126); Anion Gap 4 mmol/L (4-12); Aspartate Amino Transferase 35 U/L (14-36); Bilirubin,Total 0.4 mg/dL (0.2-1.3); Blood Urea Nitrogen 28 mg/dL (7-17); Calcium 10.2 mg/dL (8.4-10.2); Carbon Dioxide 29 mmol/L (22-30); Chloride 106 mmol/L (98-107); Cholesterol 178 mg/dL (0-200); Estimated Glomerular Filt Rate 44; Glucose 92 mg/dL (65-110); HDL Direct 67 mg/dL; Potassium 4.4 mmol/L (3.4-5.0); Sodium 139 mmol/L (137-145); Total Protein 7.9 g/dL (6.3-8.2); Triglycerides 123 mg/dL (<150)
[2025-04-27 20:18] LABS: Thyroid Stimulating Hormone 0.397 uIU/mL (0.465-4.680)
== END 2025-04-27 15:01 | disposition home or self-care (01) ==
LOC: ANHGOSHLAB 15:01
PROVIDERS: PCP Family Medicine; Visit Provider Family Medicine
DX: I16.0 Hypertensive urgency (principal)
CPT/HCPCS: 36415; 80053; 80061; 84443; 85025

== ENCOUNTER 2025-05-18 13:42 | Outpatient (CLI) | payer MEDICARE, BC, SELFPAY ==
--- NOTE | ~2025-05-18 | US_ITS ---
US renal BI 05/18/2025 13:59 Procedure: Realtime transabdominal ultrasound of the kidneys and bladder. Indication: Hypertension Comparison: No prior studies for comparison. Findings: Renal echotexture is normal bilaterally without hydronephrosis, contour deforming mass or renal calculus. The right kidney measures 10.5 cm and left kidney measures 8.2 cm. Bladder within normal limits. Impression: 1: Unremarkable renal ultrasound. No stones, masses or hydronephrosis. Reviewed, dictated and finalized at location [facility] Impression: 1: Unremarkable renal ultrasound. No stones, masses or hydronephrosis.
== END 2025-05-18 13:43 | disposition home or self-care (01) ==
LOC: MICIMG 13:43
PROVIDERS: PCP Family Medicine; Visit Provider Student in an Organized Health Care Education/Training Program
DX: I16.0 Hypertensive urgency (principal)
CPT/HCPCS: 76770